=== PATIENT | male | born 1965 | race Two or more races ===

== ENCOUNTER 2018-01-03 05:30 | Day surgery (SDC) | payer OTHER ==
[2018-01-03] MEDS ORDERED: EPINEPHRINE (1:1000) MDV 30 MG/30ML VIAL ONE (06:24)
[2018-01-03] MEDS ORDERED: LIDOCAINE HCL/PF 1% 30 ML SDV ONE (06:26)
[2018-01-03] MEDS ORDERED: ANESTHESIA TRAY IN PYXIS 1 EA TRAY MC ONE (06:29)
[2018-01-03] MEDS ORDERED: BUPIVACAINE MPF 0.75% 30 ML VIAL ONE (06:55)
[2018-01-03] MEDS ORDERED: MIDAZOLAM HCL 2 MG/2ML VIAL ONE (06:57)
[2018-01-03] MEDS ORDERED: FENTANYL PF 100MCG/2ML AMPUL ONE (06:58)
== END 2018-01-03 09:45 | disposition home or self-care (01) ==
LOC: DS 05:30
PROVIDERS: ATTEND Specialist
DX: S46.011A Strain of muscle(s) and tendon(s) of the rotator cuff of right shoulder, initial encounter (principal); M75.41 Impingement syndrome of right shoulder; M65.9 Synovitis and tenosynovitis, unspecified; X58.XXXA Exposure to other specified factors, initial encounter; Y93.89 Activity, other specified; Y92.89 Other specified places as the place of occurrence of the external cause; Y99.8 Other external cause status; M25.512 Pain in left shoulder; K21.9 Gastro-esophageal reflux disease without esophagitis; Z79.899 Other long term (current) drug therapy
CPT/HCPCS: 88304-TC; 88311-TC; A4217; A4565; A6253; A6402; C1713; J0171; J2250; J3010; J3490